=== PATIENT | male | born 1965 | race African-American/Black ===

== ENCOUNTER 2021-10-15 08:44 | Emergency (ER) | payer SELFPAY | END 2021-10-15 09:30 | disposition home or self-care (01) | LOC: BURERS 08:44 | DX: G89.29 Other chronic pain (principal); M25.512 Pain in left shoulder; M25.561 Pain in right knee; I10 Essential (primary) hypertension; F17.210 Nicotine dependence, cigarettes, uncomplicated | CPT/HCPCS: 99283 ==

== ENCOUNTER 2021-12-23 12:13 | Emergency (ER) | payer OTHER, SELFPAY ==
[2021-12-23 12:37] LABS: Hemoglobin 12.1 g/dL (14.0-18.0); Mean Corpuscular HGB CONC 35.2 g/dL (32.0-36.0); Mean Corpuscular Hemoglobin 38.9 pg (27.0-31.0); Mean Platelet Volume 5.5 fL (7.4-10.4); Platelet Count 209 thou/uL (130-400); RBC Distribution Width 12.3 % (11.5-14.5); White Blood Cell (WBC) Count 3.4 thou/uL (4.8-10.8)
[2021-12-23 12:45] LABS: INR-International Normal Ratio 1.3; Prothrombin Time 16.1 sec (12.0-14.7)
[2021-12-23 12:46] LABS: PTT 35.6 sec (22.9-36.1)
[2021-12-23 12:55] LABS: ALT (SGPT) 15 U/L (8-55); AST (SGOT) 45 U/L (5-34); Albumin 3.9 g/dL (3.5-5.0); Alkaline Phosphatase 82 U/L (40-110); Anion Gap 17 mmol/L (10-20); BUN (Urea Nitrogen) 6 mg/dL (8.4-25.7); Bilirubin, Total 1.5 mg/dL (0.2-1.2); Calc. Creatinine Clearance 0 mL/min (70-130); Calcium 8.8 mg/dL (7.8-10.44); Carbon Dioxide 22 mmol/L (22-29); Chloride 102 mmol/L (98-107); Estimated GFR 109; Globulin 3.8 g/dL (2.4-3.5); Glucose 94 mg/dL (70-105); Potassium 3.9 mmol/L (3.5-5.1); Protein, Total 7.7 g/dL (6.0-8.3); Sodium 137 mmol/L (136-145)
[2021-12-23 12:56] LABS: Alcohol 267 mg/dL (Less than 10); CK (CPK) 255 U/L (30-200); Salicylate Less than 8.0 mg/dL (15.0-30.0)
[2021-12-23 13:00] LABS: Eosinophils 2 % (0-10); Lymphocytes 56 % (21-51); MDiff Complete? YES; Macrocytosis MARKED = >30 cells (100X) (0-5/hpf); Monocytes 15 % (0-10); Neutrophil 22 % (42-75); Platelet Morphology Comment Appears Adequate; Reactive Lymphocytes 5 % (0-10)
[2021-12-23] MEDS ORDERED: Acetaminophen 325 MG TAB ONE ×2 (13:19→13:25)
[2021-12-23 13:22] LABS: Acetaminophen Less than 10.0 mcg/mL (10.0-30.0)
[2021-12-23] MEDS ORDERED: Lidocaine 1% w/Epinephrine 1:100K 20 ML VIAL ONE (14:12)
[2021-12-23 14:27] LABS: Bilirubin Negative (Negative); Blood, Urine Negative (Negative); Clarity Clear (Clear); Glucose, Urine (Dipstick) Negative (Negative); Ketone, Urine Negative (Negative); Leukocyte Negative (Negative); Nitrite Negative (Negative); Protein, Urine (Dipstick) Negative (Neg-Trace); Urobilinogen 0.2 mg/dL (Less than 2); pH, Urine 5.5 (5.0-9.0)
[2021-12-23 14:45] LABS: Specific Gravity, Urine 1.005 (1.002-1.036)
[2021-12-23] MEDS ORDERED: Boostrix 0.5 ML (Tdap) VIAL ONE (14:57)
== END 2021-12-23 16:05 | disposition home or self-care (01) ==
LOC: BURERS 12:13
DX: S01.112A Laceration without foreign body of left eyelid and periocular area, initial encounter (principal); F10.129 Alcohol abuse with intoxication, unspecified; Y90.8 Blood alcohol level of 240 mg/100 ml or more; I10 Essential (primary) hypertension; F17.210 Nicotine dependence, cigarettes, uncomplicated; W01.0XXA Fall on same level from slipping, tripping and stumbling without subsequent striking against object, initial encounter; Y92.009 Unspecified place in unspecified non-institutional (private) residence as the place of occurrence of the external cause
CPT/HCPCS: 12013; 36415; 70450; 71045; 72125; 80053; 80307; 81003; 82550; 84484; 85025; 85610; 85730; 90715; 93005